=== PATIENT | male | born 1985 | race Caucasian/White ===

== ENCOUNTER 2017-11-06 09:23 | Emergency (ER) | payer OTHER ==
[~2017-11-06] VITALS: Ht 185.4 cm; Wt 86.2 kg
[~2017-11-06 09:23] MED LIST: CEPH500 PO; CLIN150 PO; CRUTCH3 USE; Crutch1 EACH MISC; HYDACE5 PO; HYDACE7.5L PO; HYOS.375ER PO; IBUP800 PO; LAMO25 PO; MEDICAL MARIJUANA; METF500; METPRE4DP PO; METR500 PO; MULVITMIND PO; NAPR550 PO; OMEP20ER PO; OXYACE5T PO; OXYC5 PO; PENVK500 PO; PHENTERAMINE; QUET100 PO; RXHYOS.125 PO; TRAM50 PO; [UNRECOGNIZED DRUG - REMARK]
[2017-11-06] MEDS ORDERED: Norco 5-325 Ta1 EACH PO (10:44)
== END 2017-11-06 11:02 | disposition home or self-care (01) ==
LOC: ER 09:23
DX: R07.81 Pleurodynia (principal); F17.210 Nicotine dependence, cigarettes, uncomplicated; Z88.8 Allergy status to other drugs, medicaments and biological substances
CPT/HCPCS: 71101; 99283-25

== ENCOUNTER 2020-07-11 19:22 | Emergency (ER) | payer OTHER ==
[~2020-07-11] VITALS: Ht 185.4 cm; Wt 79.4 kg
[~2020-07-11 19:22] MED LIST changes: +Norco 5-325 Ta1 EACH PO
[2020-07-11 20:56] LABS: BASOPHILS ABSOLUTE AUTO 0.02 K/mm3 (0.00-0.23); BASOPHILS PERCENT AUTO 0 % (0-2); EOSINOPHILS ABSOLUTE AUTO 0.07 K/mm3 (0.00-0.68); EOSINOPHILS PERCENT AUTO 1 % (0-6); Hematocrit 49.8 % (37.0-53.0); IMMATURE GRAN ABSOLUTE AUTO 0.03 K/mm3 (0.00-0.10); IMMATURE GRAN PERCENT AUTO 0 % (0-1); LYMPHOCYTES ABSOLUTE AUTO 2.61 K/mm3 (0.84-5.20); LYMPHOCYTES PERCENT AUTO 22 % (21-46); MONOCYTES ABSOLUTE AUTO 0.77 K/mm3 (0.16-1.47); MONOCYTES PERCENT AUTO 6 % (4-13); Mean Corpuscular HGB 28.7 pg (26.0-34.0); Mean Corpuscular HGB Conc 34.1 g/dL (31.5-36.5); Mean Corpuscular Volume 84 fL (80-100); Mean Platelet Volume 9.6 fL (9.1-12.4); NEUTROPHILS ABSOLUTE AUTO 8.47 K/mm3 (1.96-9.15); NEUTROPHILS PERCENT AUTO 71 % (41-73); Platelet Count 219 K/mm3 (150-400); RDW Standard Deviation 43.1 fL (35.1-46.3); Red Blood Cell Count 5.93 M/mm3 (4.30-5.90); White Blood Cell Count 11.97 K/mm3 (4.00-11.30)
[2020-07-11 21:17] LABS: Alanine Aminotransfer (ALT/SGP 14 U/L (12-78); Albumin, Blood 4.4 g/dL (3.4-5.0); Albumin/Globulin Ratio 1.3 (0.8-1.8); Alk Phos 97 U/L (50-136); Anion Gap 3 mmol/L (6-16); Aspartate Aminotrans (AST/SGOT 9 U/L (12-37); Bilirubin, Total 1.1 mg/dL (0.1-1.0); Blood Urea Nitrogen 23 mg/dL (8-24); Bun/Creatinine Ratio 28.4 (12.0-20.0); CO2, Blood 27 mmol/L (21-32); Calcium, Blood 9.4 mg/dL (8.5-10.1); Chloride, Blood 106 mmol/L (98-108); Creatinine, Blood 0.81 mg/dL (0.60-1.20); Globulin, Blood 3.4 g/dL (2.2-4.0); Glomerular Filtration Rate >60 (60-); Glucose, Blood 108 mg/dL (70-99); Potassium, Blood 4.7 mmol/L (3.5-5.5); Sodium, Blood 136 mmol/L (136-145); Total Protein, Blood 7.8 g/dL (6.4-8.2); Troponin I <0.015 ng/mL (0.000-0.040)
== END 2020-07-12 01:05 | disposition short-term general hospital (02) ==
LOC: ER 19:22
PROVIDERS: Physician Assistant
DX: M54.5 Low back pain (principal); R53.1 Weakness; F17.200 Nicotine dependence, unspecified, uncomplicated; Z88.8 Allergy status to other drugs, medicaments and biological substances
CPT/HCPCS: 51798; 72131; 80053; 84484; 85025; 93005; 93010; 99285-25

== ENCOUNTER 2021-01-08 18:48 | Emergency (ER) | payer OTHER ==
[~2021-01-08] VITALS: Ht 182.9 cm; Wt 76.7 kg
[2021-01-08 19:28] LABS: BASOPHILS ABSOLUTE AUTO 0.04 K/mm3 (0.00-0.23); BASOPHILS PERCENT AUTO 0 % (0-2); EOSINOPHILS ABSOLUTE AUTO 0.14 K/mm3 (0.00-0.68); EOSINOPHILS PERCENT AUTO 1 % (0-6); Hematocrit 43.3 % (37.0-53.0); Hemoglobin 14.4 g/dL (13.5-17.5); IMMATURE GRAN ABSOLUTE AUTO 0.06 K/mm3 (0.00-0.10); IMMATURE GRAN PERCENT AUTO 0 % (0-1); LYMPHOCYTES ABSOLUTE AUTO 4.25 K/mm3 (0.84-5.20); LYMPHOCYTES PERCENT AUTO 24 % (21-46); MONOCYTES ABSOLUTE AUTO 0.77 K/mm3 (0.16-1.47); MONOCYTES PERCENT AUTO 4 % (4-13); Mean Corpuscular HGB Conc 33.3 g/dL (31.5-36.5); Mean Corpuscular Volume 84 fL (80-100); Mean Platelet Volume 9.8 fL (9.1-12.4); NEUTROPHILS ABSOLUTE AUTO 12.15 K/mm3 (1.96-9.15); NEUTROPHILS PERCENT AUTO 70 % (41-73); Platelet Count 296 K/mm3 (150-400); RDW Standard Deviation 42.5 fL (35.1-46.3); Red Blood Cell Count 5.14 M/mm3 (4.30-5.90); White Blood Cell Count 17.41 K/mm3 (4.00-11.30)
[2021-01-08 19:55] LABS: Alanine Aminotransfer (ALT/SGP 19 U/L (12-78); Albumin, Blood 4.1 g/dL (3.4-5.0); Albumin/Globulin Ratio 1.2 (0.8-1.8); Alk Phos 69 U/L (50-136); Anion Gap 5 mmol/L (6-16); Aspartate Aminotrans (AST/SGOT 15 U/L (12-37); Bilirubin, Total 0.9 mg/dL (0.1-1.0); Blood Urea Nitrogen 13 mg/dL (8-24); Bun/Creatinine Ratio 17.1 (12.0-20.0); CO2, Blood 24 mmol/L (21-32); Calcium, Blood 9.3 mg/dL (8.5-10.1); Chloride, Blood 109 mmol/L (98-108); Creatinine, Blood 0.76 mg/dL (0.60-1.20); Globulin, Blood 3.4 g/dL (2.2-4.0); Glomerular Filtration Rate >60 (60-); Glucose, Blood 115 mg/dL (70-99); Potassium, Blood 4.9 mmol/L (3.5-5.5); Sodium, Blood 138 mmol/L (136-145); Total Protein, Blood 7.5 g/dL (6.4-8.2)
[2021-01-08] MEDS ORDERED: BUSP5 PO (21:08)
[2021-01-08] MEDS ORDERED: GABA100 (21:08)
[2021-01-08] MEDS ORDERED: BUPR75 PO (21:10)
[2021-01-08] MEDS ORDERED: Inderal40 MG PO (21:10)
[2021-01-08 21:33] LABS: Troponin I <0.015 ng/mL (0.000-0.040)
[2021-01-08 22:37] LABS: SARS-Cov-2 (COVID-19) PCR, MMC NEGATIVE (NEGATIVE)
== END 2021-01-08 23:24 | disposition short-term general hospital (02) ==
LOC: ER 18:48
PROVIDERS: Physician Assistant; Student in an Organized Health Care Education/Training Program
DX: K66.8 Other specified disorders of peritoneum (principal); D72.829 Elevated white blood cell count, unspecified; Z20.822 Contact with and (suspected) exposure to COVID-19; F17.200 Nicotine dependence, unspecified, uncomplicated; Z88.8 Allergy status to other drugs, medicaments and biological substances
CPT/HCPCS: 71045; 71260; 74177; 80053; 83605; 84484; 85025; 93005; 93010; 96365; 96367; 96375; 96376; 99285-25; C9113; J0696; J2060; J2543; J7120; Q9967; U0004